=== PATIENT | male | born 1985 | race Caucasian/White ===

== ENCOUNTER 2017-12-06 16:11 | Emergency (ER) | END 2017-12-06 20:10 | disposition home or self-care (01) ==

== ENCOUNTER 2017-12-08 12:52 | Emergency (ER) | END 2017-12-08 13:27 | disposition home or self-care (01) ==

== ENCOUNTER 2017-12-17 12:55 | Emergency (ER) | END 2017-12-17 14:27 | disposition home or self-care (01) ==